=== PATIENT | female | born 1980 | race Caucasian/White ===

== ENCOUNTER 2017-01-20 15:50 | Emergency (ER) | payer OTHER ==
[~2017-01-20] VITALS: Ht 160 cm; Wt 60.4 kg
[2017-01-20 16:19] VITALS: BP 127/90
--- NOTE | 2017-01-20 16:58 | NUR ---
PATIENT AMBULATED TO ER BED 6.
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
[2017-01-20] MEDS ORDERED: NACL 0.9% 1,000 ML IV ONE (17:06)
[2017-01-20] MEDS ORDERED: NACL 0.9% 1,000 ML IV SCH (17:07)
--- NOTE | 2017-01-20 17:08 | NUR ---
Patient being evaluated by physician at bedside.
[2017-01-20] MEDS ORDERED: ONDANSETRON 4 MG/2 ML VIAL IVP ONE (17:10)
[2017-01-20] MEDS ORDERED: HYDROmorphone 1 MG/ML AMP IVP ONE ×2 (17:10→21:25)
[2017-01-20 17:33] LABS: BASOPHILS # (AUTO) 0.5 K/uL (0.00-0.22); BASOPHILS % (AUTO) 4.7 % (0.0-2.0); EOSINOPHILS # (AUTO) 0.3 K/uL (0-0.4); EOSINOPHILS % (AUTO) 2.2 % (0.0-4.0); HEMATOCRIT 36.5 % (36-48); HEMOGLOBIN 12.2 g/dL (12.0-16.0); LYMPHOCYTES # (AUTO) 1.6 K/uL (2.5-16.5); LYMPHOCYTES % (AUTO) 13.9 % (20.5-51.1); MEAN CORPUSCULAR HEMOGLOBIN 29 pg (27-31); MEAN CORPUSCULAR HGB CONC 33 g/dL (33-37); MEAN CORPUSCULAR VOLUME 86 fL (80-94); MONOCYTES # (AUTO) 1.1 K/uL (0.8-1.0); NEUTROPHILS % (AUTO) 69.2 % (42.2-75.2); PLATELET COUNT (AUTO) 411 K/uL (140-450); RED BLOOD CELL COUNT(AUTO) 4.25 MIL/uL (4.20-5.40); RED CELL DISTRIBUTION WIDTH 16.5 % (11.6-13.7); WHITE BLOOD COUNT (AUTO) 11.5 K/uL (4.8-10.8)
[2017-01-20 17:46] LABS: ANION GAP 9.7 (8-16); CALCIUM 8.8 mg/dL (8.5-10.1); CARBON DIOXIDE 32.6 mmol/L (21-32); CHLORIDE 103 mmol/L (98-107); CREATININE 0.7 mg/dL (0.6-1.3); GFR ARICAN-AMERICAN 121 mL/min (>90); GFR NON ARICAN-AMERICAN 100 mL/min (>90); GLUCOSE 107 mg/dL (74-106); POTASSIUM 3.3 mmol/L (3.5-5.1); SODIUM SERUM 142 mmol/L (136-145); UREA NITROGEN, BLOOD 15 mg/dL (7-18)
[2017-01-20 17:47] LABS: AMYLASE 53 U/L (25-115); LIPASE 92 U/L (73-393)
[2017-01-20 17:51] LABS: INR 1.1 (0.8-1.2); PARTIAL THROMBOPLASTIN TIME 28.3 secs (22-35.6); PROTHROMBIN TIME 10.7 secs (10.8-13.4)
[2017-01-20 17:52] LABS: ALANINE AMINOTRANSFERASE 22 U/L (12-78); ALBUMIN 3.4 g/dL (3.4-5.0); ALCOHOL, BLOOD < 3 mg/dL (<3); ALKALINE PHOSPHATASE 148 U/L (46-116); ASPARTATE AMINOTRANSFERASE 22 U/L (15-37); BILIRUBIN,DIRECT 0.1 mg/dL (0.0-0.3); TOTAL BILIRUBIN 0.3 mg/dL (0.0-1.0); TOTAL PROTEIN, SERUM 7.2 g/dL (6.4-8.2)
[2017-01-20 17:59] LABS: AMPHETAMINE, URINE NEG. ng/ml (NEG <=1000); BARBITURATE, URINE NEG. ng/ml (NEG <=200); BENZODIAZEPINE, URINE NEG. ng/mL (NEG <=200); CANNABINOID, URINE NEG. ng/mL (NEG <=50); COCAINE, URINE NEG. ng/mL (NEG <=300); OPIATE, URINE NEG. ng/mL (NEG <=2000); PHENCYCLIDINE SCREEN,URINE NEG. ng/mL (NEG <=25)
[2017-01-20 18:00] LABS: APPEARANCE,URINE HAZY (CLEAR); BILIRUBIN,URINE NEGATIVE (NEGATIVE); BLOOD, URINE TRACE-L (NEGATIVE); NITRITE, URINE NEGATIVE (NEGATIVE); PROTEIN,URINE TRACE (NEGATIVE); UGLUCOSE NEGATIVE (NEGATIVE); UROBILINOGEN,URINE 0.2 EU/dL (0.2 - 1)
--- NOTE | 2017-01-20 18:00 | NUR ---
CALLED REPORT TO KEYONA MENCHACA ;[facility]
[2017-01-20 18:13] LABS: COLOR,URINE YELLOW (YELLOW)
[2017-01-20 18:14] LABS: LEUKOCYTE ESTERASE ,URINE 2+ (NEGATIVE)
[2017-01-20 18:15] LABS: BACTERIA,URINE 2+ /HPF (None Seen); RBC,URINE 0-5 (RARE) /HPF (0-5); SQUAMOUS EPITHELIAL CELL,UR 4-10 (MOD) /LPF (0-3 (FEW)); WBC,URINE 60-80 /HPF (0-5)
[2017-01-20] MEDS ORDERED: cefTRIAXone 1,000 MG VIAL ONE (18:58)
--- NOTE | 2017-01-20 19:16 | NUR ---
GAVE REPORT TO KEYONA GUALLPA
[2017-01-20] MEDS ORDERED: diphenhydrAMINE 50 MG/ML VIAL IVP ONE (20:00)
--- NOTE | 2017-01-20 20:20 | NUR ---
PT TAKEN BY [facility] . PT STABLE, VSS ON D/C.
--- NOTE | 2017-01-20 20:22 | NUR ---
PT STABLE, RECEIVED BENADRYL D/T ITCHINESS TO NOSE. NO S/S OF RESP DISTRESS NOTED. O2 SAT 98% RA.
[2017-01-20] MEDS ORDERED: ACETAMINOPHEN EXTRA STRENGTH 500 MG TAB PO ONE (20:35)
--- NOTE | 2017-01-20 21:08 | NUR ---
PT RESTING IN BED AWATING FOR TRASPORT. NO S/S OF DISTRESS NOTED.
--- NOTE | 2017-01-20 22:04 | NUR ---
PT RESTING IN BED NO S/S OF DISTRESS NOTED CONTINUES AWATING FOR TRASPORT.
--- NOTE | 2017-01-20 22:09 | NUR ---
PT WILL BE TRASPORT A CODE 3 PER ER MD REQUEST. NO S/S OF DISTRESS NOTED VS REMAIN STABLE. PT ALERT AND ORIENTED X 4. CONTINUES ON MONITOR.
[2017-01-20 22:20] VITALS: BP 134/94
--- NOTE | 2017-01-20 22:29 | NUR ---
PT TAKEN BY [facility]
== END 2017-01-20 22:29 | disposition short-term general hospital (02) ==
LOC: MED 15:50
DX: I62.01 Nontraumatic acute subdural hemorrhage (principal); S90.02XA Contusion of left ankle, initial encounter; N39.0 Urinary tract infection, site not specified
CPT/HCPCS: 36415; 70450; 73610; 80053; 80305; 81001; 81025; 82150; 82248; 83690; 85025; 85610; 85730; 87086; 87186; 96361; 96365; 96375; 96376; 99285; G0482; J0696; J1170; J1200; J2405; J7030; J7060; Q0092